=== PATIENT | female | born 1995 | race African-American/Black ===

== ENCOUNTER 2019-04-27 15:12 | Emergency (ER) | payer OTHER, SELFPAY ==
--- NOTE | ~2019-04-27 | XR_ITS ---
EXAMINATION: XR chest 2V 04/27/2019 15:54 INDICATION: Reduction of cough, nausea and vomiting PROCEDURE: 2 view chest COMPARISON: No prior studies for comparison. FINDINGS: The lungs are clear. The cardiomediastinal silhouette is within normal limits. There are no pleural effusions. There is no pneumothorax suspected. IMPRESSION: 1: NO ACUTE CARDIOPULMONARY DISEASE. Reviewed, dictated and finalized at location A. [employer]
[2019-04-27 15:15] VITALS: BP 133/69; PULSE 86; RESP 18; TEMP 36.2; O2SAT 100
--- NOTE | 2019-04-27 15:30 | ED.URI ---
HPI - URI/Sore Throat General Chief Complaint: Upper Respiratory Infection Stated Complaint: cough Time Seen by Provider: 04/27/19 15:28 Source: patient and RN notes reviewed Mode of arrival: other Limitations: no limitations History of Present Illness HPI Narrative: Pt is a 24 y/o female who presents to the ED with c/o a cough that began Friday (04/20/19). Pt went to [place] and was recently dx with the flu on Friday (04/20/19). She states that she took her full dosage of Tamiflu. She states the medication stopped the fever. Pt states that she cannot keep anything down. Pt states that she has been losing weight. Pt denies taking medication for her sx because she cannot keep the medication down. Pt's LMP was on 03/18/19. Pt states that she just recently took her NuvaRing out. Pt also reports left otalgia that began 3 days ago (04/24/19), vomiting that began 5 days ago (04/22/19), CP, and a sore throat, but denies a fever, SOB, lightheadedness, dizziness, and tinnitus. MD elicited complaint: cough Onset (ago): week(s) (1) Consistency: constant Able to tolerate fluids by mouth: No Relieving factors: nothing Associated symptoms: sore throat, chest pain, vomiting, ear pain (left) and other Treatments prior to arrival: none Related Data Allergies Allergy/AdvReac Type Severity Reaction Status Date / Time No Known Allergies Allergy Verified 04/27/19 15:29 Review of Systems Review of Systems: All systems reviewed & are unremarkable except as noted in HPI and below Constitutional: Constitutional: Denies fever(s) ENT: Reports otalgia (left), Denies tinnitus and Reports sore throat Cardiovascular: Cardiovascular: Reports chest pain and Denies lightheadedness Respiratory: Respiratory: Reports cough and Denies dyspnea Gastrointestinal: Gastrointestinal: Reports vomiting Neurologic: Denies dizziness PMFSH Past Medical History Medical History (Updated 04/27/19 @ 18:27 by Sabra Linn MD) GERD (gastroesophageal reflux disease) Type II diabetes mellitus Surgical History Surgical History (Updated 04/27/19 @ 15:41 by Nandini Becerra) Hx of section Social History Social History Gender identity (if verbalized by the patient): Female Exam Narrative: Exam Narrative: GENERAL: well-nourished, and in no acute distress. HEAD: Normocephalic, atraumatic EYES: PERRLA and EOMI, conjunctiva clear without discharge EARS: TM's clear bilaterally without erythema or dullness NOSE: Nares clear, no rhinorrhea or epistaxis THROAT:Mucous membranes moist, Oropharynx normal without erythema, exudate, peritonsillar swelling or fluctuance NECK: Supple, without lymphadenopathy or mass RESPIRATORY: No respiratory distress, Airway patent, Respirations non-labored, Clear to auscultation without rales, rhonchi or wheeze HEART: Regular rate and rhythm. No murmur heard. Normal peripheral pulses. ABDOMEN: Soft, nontender, nondistended, normal active bowel sounds. No masses. No rebound or guarding, No organomegaly. EXTREMITIES: No edema, normal strength with full range of motion. SKIN: Warm, dry, normal color without rash NEURO: Alert and oriented x3. CN 2-12 grossly intact. No focal deficits. PSYCH: Normal mood and affect. Course Reevaluation(s) Reevaluation #1: PAtient drank clear soda and ate crackers with out vomiting. I Discussed labs and test are unremarkable. Date: 04/27/19 Time: 18:25 Vital Signs Vital signs: Vital Signs Temperature 97.1 F L 04/27/19 15:15 Pulse Rate 86 04/27/19 15:15 Respiratory Rate 18 04/27/19 15:15 Blood Pressure 133/69 04/27/19 15:15 Pulse Oximetry 100 04/27/19 15:15 Temperature 97.1 F L 04/27/19 15:15 Pulse Rate 67 04/27/19 16:33 Respiratory Rate 18 04/27/19 15:15 Blood Pressure 108/75 04/27/19 16:33 Pulse Oximetry 100 04/27/19 15:15 MDM - URI/Sore Throat Lab Data Result diagrams: 04/27/19 15:48 04/27/19 15:48 Labs: Lab Re
[2019-04-27 16:00] LABS: Basophils Percent Auto 0.3 % (0.2-1.2); Eosinophils Absolute Auto 0.1 K/mm3 (0-0.3); Eosinophils Percent Auto 2.2 % (0-4.4); Hematocrit 38.7 % (37.0-47.0); Immature Granulocyte Absolute 0.02 K/mm3 (0.00-0.031); Immature Granulocyte Percent A 0.3 % (0-0.5); Lymphocytes Absolute Auto 2.61 K/mm3 (0.9-3.2); Lymphocytes Percent Auto 44.5 % (18.3-44.2); Mean Corpuscular Hemoglobin 25.8 pg (26-34); Mean Platelet Volume 11.1 fl (7.4-10.4); Monocytes Absolute Auto 0.5 K/mm3 (0.1-0.6); Monocytes Percent Auto 8.2 % (2.6-8.5); Neutrophils Absolute Auto 2.6 K/mm3 (1.3-6.7); Neutrophils Percent Auto 44.5 % (45.5-73.1); Platelet Count Result 280 k/mm3 (150-375); Red Blood Count 4.66 M/mm3 (4.2-5.4); Red Cell Distribution Width 12.8 % (11.5-14.5); White Blood Count 5.9 K/mm3 (4.5-10.0)
[2019-04-27] MEDS: ONDANSETRON INJ 4 MG/2 ML VIAL IV PUSH (16:02)
[2019-04-27] MEDS: KETOROLAC 30 MG/ML VIAL (*BKC) IV PUSH (16:03)
[2019-04-27] MEDS: LACTATED RINGERS 1,000 ML 999 ML IV CONT (16:04)
[2019-04-27 16:07] LABS: Alanine Aminotransferase 25 U/L (4-35); Albumin Level 4.2 g/dL (3.5-5.1); Alkaline Phosphatase 39 U/L (38-126); Aspartate Amino Transferase 22 U/L (14-36); Bilirubin,Total 0.5 mg/dL (0.2-1.3); Blood Urea Nitrogen 11 mg/dL (7-17); Calcium 9.1 mg/dL (8.4-10.2); Carbon Dioxide 23 mmol/L (22-30); Chloride 105 mmol/L (98-107); Estimated Glomerular Filt Rate > 60; Glucose 121 mg/dL (65-105); Potassium 3.6 mmol/L (3.4-5.0); Sodium 140 mmol/L (137-145)
[2019-04-27 16:17] LABS: Monoscreen Negative (Negative); Negative Monotest Control Negative (Negative); Positive Monotest Control Positive (Positive)
[2019-04-27 16:28] VITALS: BP 113/68; PULSE 62
[2019-04-27 16:30] LABS: Add Urine Microscopic? NO; Appearance Urine Clear (Clear); Bilirubin Urine Negative (Negative); Blood Urine Negative (Negative); Color Urine Yellow (Yellow); Glucose Urine UA Negative (Negative); Ketones Urine Negative (Negative); Leukocyte Esterase Ur Negative LEU/UL (Negative); Nitrate Urine Negative (Negative); Protein Urine Negative (Negative); Specific Grav Ur 1.019 (1.001-1.035); Urobilinogen Urine Negative mg/dL (<2.0)
[2019-04-27 16:32] VITALS: BP 115/76; PULSE 63
[2019-04-27 16:33] VITALS: BP 108/75; PULSE 67
[2019-04-27 17:00] VITALS: BP 112/67; PULSE 76; RESP 12; TEMP 36.7; O2SAT 100
[2019-04-27 18:35] VITALS: BP 120/85; PULSE 72; RESP 15; O2SAT 100
== END 2019-04-27 18:36 | disposition home or self-care (01) ==
PROVIDERS: Emergency Provider General Practice; PCP Family Medicine
DX: B34.9 Viral infection, unspecified (principal); R11.2 Nausea with vomiting, unspecified; K21.9 Gastro-esophageal reflux disease without esophagitis; E11.9 Type 2 diabetes mellitus without complications
CPT/HCPCS: 36415; 71046; 80053; 81003; 81025; 85025; 86308; 87081; 87880; 96361; 96374; 96375; 99284; J1885; J2405; J7120